=== PATIENT | female | born 1985 | race Two or more races ===

== ENCOUNTER → 2020-04-12 | Outpatient (CLI) | payer OTHER | END | disposition home or self-care (01) | LOC: PRENATAL 10:28 | DX: O99.89 Other specified diseases and conditions complicating pregnancy, childbirth and the puerperium (principal); O34.211 Maternal care for low transverse scar from previous cesarean delivery; O35.3XX0 Maternal care for (suspected) damage to fetus from viral disease in mother, not applicable or unspecified; Z36.89 Encounter for other specified antenatal screening ==

== ENCOUNTER → 2020-07-31 | Outpatient (CLI) | payer OTHER | END | disposition home or self-care (01) | LOC: PRENATAL 13:00 | PROVIDERS: ATTEND Obstetrics & Gynecology Maternal & Fetal Medicine | DX: O26.843 Uterine size-date discrepancy, third trimester (principal); O36.8131 Decreased fetal movements, third trimester, fetus 1; O36.5931 Maternal care for other known or suspected poor fetal growth, third trimester, fetus 1; Z36.89 Encounter for other specified antenatal screening; Z3A.35 35 weeks gestation of pregnancy ==

== ENCOUNTER 2020-08-14 07:17 | Inpatient (IN) | payer OTHER ==
[~2020-08-14] VITALS: Ht 149.9 cm; Wt 2.3 kg
[2020-08-14] MEDS ORDERED: PRENATAL CAPLE1 EAC1 PO (08:26)
[2020-08-17] MEDS ORDERED: IBUPROFEN800 MG PO (11:40)
[2020-08-17] MEDS ORDERED: PREPLUS CA-FE1 EACH PO (11:40)
[2020-08-17] MEDS ORDERED: SIMETHICONE125 M1 PO (11:40)
[2020-08-17] MEDS ORDERED: DOCUSATE SODIU100 MG PO (11:40)
== END 2020-08-17 11:57 | DRG 785 ==
LOC: LDR 07:17 → OB/GYN 07:17 → O/R 07:17 → LDR 07:21 → O/R 12:34 → OB/GYN 15:26
PROVIDERS: ADMIT Obstetrics & Gynecology; ATTEND Obstetrics & Gynecology
PROC: 0UT70ZZ Resection of Bilateral Fallopian Tubes, Open Approach (ICD-10-PCS; 2020-08-14)
PROC: 4A0HXFZ Measurement of Products of Conception, Cardiac Rhythm, External Approach (ICD-10-PCS; 2020-08-14)
PROC: 10D00Z1 Extraction of Products of Conception, Low, Open Approach (ICD-10-PCS; principal; 2020-08-14 08:15)
DX: O82 Encounter for cesarean delivery without indication (principal); O34.211 Maternal care for low transverse scar from previous cesarean delivery; Z3A.39 39 weeks gestation of pregnancy; Z37.0 Single live birth; Z30.2 Encounter for sterilization

== ENCOUNTER 2020-08-18 15:00 | Inpatient (IN) | payer OTHER ==
[~2020-08-18] VITALS: Ht 149.9 cm; Wt 74.8 kg
[~2020-08-18 15:00] MED LIST: DOCUSATE SODIU100 MG PO; IBUPROFEN800 MG PO; PRENATAL CAPLE1 EAC1 PO; PREPLUS CA-FE1 EACH PO; SIMETHICONE125 M1 PO
[2020-08-21] MEDS ORDERED: CLEOCIN HCL300 MG PO (08:35)
== END 2020-08-21 10:36 | DRG 699 ==
LOC: OB/GYN 15:00
PROVIDERS: ADMIT Obstetrics & Gynecology; ATTEND Obstetrics & Gynecology
PROC: BW4GZZZ Ultrasonography of Pelvic Region (ICD-10-PCS; principal; 2020-08-18)
DX: N99.89 Other postprocedural complications and disorders of genitourinary system (principal); N39.0 Urinary tract infection, site not specified; R14.0 Abdominal distension (gaseous)